=== PATIENT | female | born 1975 | race Caucasian/White ===

== ENCOUNTER → 2019-06-09 | Outpatient (CLI) | payer OTHER ==
[~2019-06-09] MED LIST: ASPIR 8181 MG PO; CLEOCIN HCL300 MG PO; HYDROCODONE-APA1 TA1 PO; IBUPROFEN 400400 M1 PO; IBUPROFEN 400400 M2 PO; ONDANSETRON HCL4 M2 PO
== END ==
LOC: M.RAD 15:45
DX: Z12.31 Encounter for screening mammogram for malignant neoplasm of breast (principal)

== ENCOUNTER → 2021-06-03 | Outpatient (CLI) | payer OTHER | LOC: M.RAD 09:22 | PROVIDERS: ATTEND Family Medicine | DX: Z12.31 Encounter for screening mammogram for malignant neoplasm of breast (principal); N64.89 Other specified disorders of breast ==